=== PATIENT | female | born 1975 | race African-American/Black ===

== ENCOUNTER 2016-08-31 15:13 | Emergency (ER) | payer OTHER ==
[~2016-08-31 15:13] MED LIST: BACTRIM DS TABL1 TA1; BACTRIM DS TABL1 TA1 PO; CARAFATE1 G PO; MOTRIN600 M2 PO; NO MEDICATIONS; PYRIDIUM PO; SEIZURE MED; VICODIN PO
== END 2016-08-31 16:39 | disposition home or self-care (01) ==
LOC: SED 15:13
DX: G44.209 Tension-type headache, unspecified, not intractable (principal); Z88.8 Allergy status to other drugs, medicaments and biological substances
CPT/HCPCS: 96372; 99283; J0780; J1200